=== PATIENT | male | born 2000 | race Caucasian/White ===

== ENCOUNTER 2020-05-12 21:34 | Emergency (ER) | payer BC, OTHER ==
[~2020-05-12] VITALS: Ht 165.1 cm; Wt 70.0 kg
[2020-05-12] MEDS ORDERED: LORazepam 1MG TABLET PO ONE (22:00)
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
[2020-05-12] MEDS ORDERED: LORazepam 1MG TABLET ONE (22:20)
--- NOTE | 2020-05-12 22:29 | NUR ---
PT MEDICATED WITH ATIVAN. BELONGINGS REMOVED. PT AWARE THAT UA IS NEEDED. FRIEND AT BEDSIDE. SITTER IN VIEW OF PT.
[2020-05-12 22:49] LABS: BASOPHILS # (AUTO) 0.05 x10^3/uL (0-0.1); BASOPHILS % (AUTO) 0 % (0-1); EOSINOPHILS % (AUTO) 1 % (1-7); LYMPHOCYTES % (AUTO) 13 % (22-44); MD NO; MEAN CORPUSCULAR HEMOGLOBIN 28.5 pg (27.5-34.5); MEAN CORPUSCULAR HGB CONC 33.3 g/dL (33.2-36.2); MEAN CORPUSCULAR VOLUME 85.6 fL (81-97); MEAN PLATELET VOLUME 8.4 fL (7.4-10.4); MONOCYTES # (AUTO) 0.87 x10^3/uL (0.2-0.8); MONOCYTES % (AUTO) 8 % (2-9); NEUTROPHILS # (AUTO) 8.85 x10^3/uL (1.8-6.8); NEUTROPHILS % (AUTO) 78 % (42-75); PLATELET COUNT 381 x10^3/uL (130-400); RED BLOOD COUNT 5.53 x10^6/uL (4.38-5.82); RED CELL DISTRIBUTION WIDTH 13.1 % (9.4-14.8)
[2020-05-12 22:59] LABS: ALBUMIN 4.3 g/dL (3.4-5.0); ANION GAP 7 mmol/L (5-15); CALCIUM 9.2 mg/dL (8.5-10.1); CHLORIDE 109 mmol/L (98-107)
[2020-05-12 23:01] LABS: ALANINE AMINOTRANSFERASE 32 U/L (12-78); CREATININE 0.94 mg/dL (0.7-1.3); TROPONIN I < 0.015 ng/mL (0.000-0.045)
[2020-05-12 23:05] LABS: ALKALINE PHOSPHATASE 74 U/L (45-117); BILIRUBIN,TOTAL 0.4 mg/dL (0.2-1.0); TOTAL PROTEIN 7.9 g/dL (6.4-8.2)
[2020-05-12 23:06] LABS: SALICYLATE LEVEL < 1.7 mg/dL (2.8-20.0)
--- NOTE | 2020-05-12 23:46 | NUR ---
PT RESTING. FRIEND AT BEDSIDE. SITTER IN VIEW OF PT
[2020-05-13 01:40] LABS: AMPHETAMINE SCREEN, URINE Negative (Negative); BARBITURATE SCREEN, URINE Negative (Negative); BENZODIAZEPINE SCREEN, URINE Negative (Negative); CANNABINOID SCREEN, URINE Positive (Negative); COCAINE SCREEN, URINE Negative (Negative); METHADONE SCREEN, URINE Negative (Negative); OPIATE SCREEN, URINE Negative (Negative)
--- NOTE | 2020-05-13 01:48 | NUR ---
PT UPDATED THAT HE IS BEING PLACED ON A LEGAL HOLD. PT IS NOT VERY HAPPY BUT IS ACCEPTING OF IT. PTS GIRLFRIEND ADVISED THAT SHE WILL HAVE TO LEAVE BUT CAN VISIT DURING THE DAY LONG PT REMAINS CALM. . VSS. SITTER IN VIEW OF PT.
--- NOTE | 2020-05-13 02:43 | NUR ---
PT PLACED ON HOSPITAL BED AND ROOM SECURED. VSS. SITTER IN VIEW OF PT.
--- NOTE | 2020-05-13 02:47 | NUR ---
PTS GIRLFRIEND JOSE MOURA LEAVING BUT WILL CALL IN THE MORNING. PT HAS GIVEN PERMISSION TO TO UPDATE HER AND SHE WOULD LIKE TO BE CALLED IF PT IS RELEASED [phone]
--- NOTE | 2020-05-13 04:09 | NUR ---
PT SLEEPING. EVEN RISE AND FALL OF CHEST OBSERVED. SITTER IN VIEW OF PT.
--- NOTE | 2020-05-13 05:06 | NUR ---
PT RESTING IN BED IN NAD. EVEN RISE AND FALL OF CHEST OBSERVED. SITTER IN VIEW OF PT.
--- NOTE | 2020-05-13 05:36 | NUR ---
[facility]
--- NOTE | 2020-05-13 06:01 | NUR ---
SPOKE WITH HARSHA AT [facility]. THEY ARE FULL RIGHT NOW BUT WILL CALL BACK LATER IN THE MORNING AFTER DISCHARGES HAVE BEEN MADE
--- NOTE | 2020-05-13 06:15 | NUR ---
PT HAS BEEN ACCEPTED BY FRANCISCO AT [facility]. ACCEPTING DR IS DR LIMA. FRANCISCO ASKED FOR 2 HOURS TO ARRANGE ADMIT.
--- NOTE | 2020-05-13 06:56 | NUR ---
TOOK REPORT FROM ERNESTO SAEED RN, ASSUME CARE.
--- NOTE | 2020-05-13 07:15 | NUR ---
ROOM IS SAFE AND SECURE, PT CALM SLEEPING, RR EVEN AND UNLABORED. ERIBERTO SITTER OUTSIDE ROOM.
[2020-05-13 10:55] VITALS: BP 127/74
--- NOTE | 2020-05-13 10:57 | NUR ---
PT TRASPORTED TO [facility]
== END 2020-05-13 10:58 | disposition home or self-care (01) ==
LOC: ED 22:52
DX: R10.13 Epigastric pain (principal); R45.851 Suicidal ideations; R07.89 Other chest pain; R06.02 Shortness of breath; F17.200 Nicotine dependence, unspecified, uncomplicated; R00.0 Tachycardia, unspecified; F17.210 Nicotine dependence, cigarettes, uncomplicated
CPT/HCPCS: 36415; 71045; 80053; 80307; 83690; 84484; 85025; 93005; 99285

== ENCOUNTER 2020-06-16 20:07 | Emergency (ER) | payer BC, OTHER ==
[~2020-06-16] VITALS: Ht 165.1 cm; Wt 75.9 kg
[2020-06-16 20:08] VITALS: BP 146/97
--- NOTE | 2020-06-16 20:21 | NUR ---
LEFT PINKY LAC WITH KITCHEN KNIFE. PLACED ON VITALS MONITORS, CALL LIGHT AT REACH.
[2020-06-16] MEDS ORDERED: LIDOCAINE-MPF 1%, 5ML INFIL ONE (20:30)
[2020-06-16] MEDS ORDERED: LIDOCAINE-MPF 1%, 5ML ONE (20:33)
[2020-06-16] MEDS ORDERED: NEOSPORIN OINT. PKT 1 PACKET ONE (21:30)
== END 2020-06-16 21:44 ==
LOC: ED 21:00
DX: S61.217A Laceration without foreign body of left little finger without damage to nail, initial encounter (principal); W26.0XXA Contact with knife, initial encounter; Y93.89 Activity, other specified; Y92.009 Unspecified place in unspecified non-institutional (private) residence as the place of occurrence of the external cause; Y99.8 Other external cause status
CPT/HCPCS: 12001; 99282

== ENCOUNTER 2020-07-11 18:26 | Emergency (ER) | payer BC, OTHER ==
[~2020-07-11] VITALS: Ht 165.1 cm; Wt 72.0 kg
[2020-07-11 18:38] VITALS: BP 133/75
[2020-07-11 19:31] LABS: BASOPHILS % (AUTO) 1 % (0-1); EOSINOPHILS % (AUTO) 0 % (1-7); LYMPHOCYTES % (AUTO) 29 % (22-44); MEAN CORPUSCULAR HEMOGLOBIN 28.2 pg (27.5-34.5); MEAN CORPUSCULAR HGB CONC 33.3 g/dL (33.2-36.2); MONOCYTES % (AUTO) 6 % (2-9); NEUTROPHILS % (AUTO) 64 % (42-75); PLATELET COUNT 373 x10^3/uL (130-400); RED BLOOD COUNT 5.53 x10^6/uL (4.38-5.82); RED CELL DISTRIBUTION WIDTH 12.9 % (9.4-14.8)
[2020-07-11 19:35] LABS: ALANINE AMINOTRANSFERASE 44 U/L (12-78); ALBUMIN 4.4 g/dL (3.4-5.0); ANION GAP 5 mmol/L (5-15); CALCIUM 8.8 mg/dL (8.5-10.1); CHLORIDE 110 mmol/L (98-107); CREATININE 0.84 mg/dL (0.7-1.3)
[2020-07-11 19:36] LABS: MD NO
[2020-07-11 19:37] LABS: ALKALINE PHOSPHATASE 78 U/L (45-117); BILIRUBIN,TOTAL 0.3 mg/dL (0.2-1.0); TOTAL PROTEIN 7.8 g/dL (6.4-8.2)
--- NOTE | 2020-07-11 19:52 | NUR ---
in room to answer call light pt upset and wants to go home. pt concerns about losing his job. pt is very upset and is very demanding of this rn. pt again states he wants to leave. md made aware and in room to discuss with pt. pt provided list of resourses for pcp and clinics.
--- NOTE | 2020-07-11 20:05 | NUR ---
pt discharged per md. pt encouraged to return to the er if any new or worsening symptoms arise. pt very insistent on leaving the er . md discharged pt. pt had stated if he is not discharge he will ama. pt discharged and ambulated to the desk with a steady gait. pt axox4 and nadn.
== END 2020-07-11 20:11 | disposition home or self-care (01) ==
LOC: ED 20:09
DX: R55 Syncope and collapse (principal); F10.10 Alcohol abuse, uncomplicated; F17.200 Nicotine dependence, unspecified, uncomplicated; Y90.9 Presence of alcohol in blood, level not specified
CPT/HCPCS: 36415; 70450; 71045; 80053; 80307; 85025; 93005; 99285